=== PATIENT | female | born 1955 | race African-American/Black ===

== ENCOUNTER 2017-08-12 23:24 | Emergency (ER) | payer MEDICAID ==
[~2017-08-12] VITALS: Ht 165.1 cm; Wt 98.4 kg
[~2017-08-12 23:24] MED LIST: AMIODARONE HCL200 MG PO; ECO81 PO; HYDROCHLOROTH12.5 M2; HYDROCHLOROTH12.5 MG PO; LAC PO; LASIX20 MG PO; LEVAQUIN750 MG PO; LIPITOR20 MG; LOPRESSOR50 MG PO; METOPROLOL TART25 M1 PO; PRI20 PO; RANITIDINE75 MG; ZES10 PO; ZESTRIL5 MG PO; ZOC10 PO
[2017-08-13 06:40] VITALS: BP 139/91
== END 2017-08-13 06:40 | disposition home or self-care (01) ==
LOC: ED 23:24
DX: J06.9 Acute upper respiratory infection, unspecified (principal); I10 Essential (primary) hypertension; E78.00 Pure hypercholesterolemia, unspecified; K21.9 Gastro-esophageal reflux disease without esophagitis